=== PATIENT | female | born 1965 | race Caucasian/White ===

== ENCOUNTER 2017-12-12 16:54 | Emergency (ER) | payer MEDICARE, OTHER ==
[~2017-12-12 16:54] MED LIST: KETOROLAC 15 MG INJ IV
[2017-12-12 17:16] LABS: ADD MAN DIFF? NO
[2017-12-12 17:18] LABS: BASOPHILS % 0.4 % (0.0-2.0); EOSINOPHILS # 0.2 10^3/ul (0.0-0.5); EOSINOPHILS % 1.7 % (0.0-7.0); HEMATOCRIT 36.2 % (37.0-47.0); HEMOGLOBIN 11.6 g/dl (12.0-16.0); LYMPHOCYTES # 1.9 10^3/ul (0.8-2.9); LYMPHOCYTES % 21.5 % (15.0-51.0); MEAN CORPUSCULAR HEMOGLOBIN 28.2 pg (29.0-33.0); MEAN CORPUSCULAR VOLUME 87.9 fl (82.0-101.0); MEAN PLATELET VOLUME 9.2 fl (7.4-10.4); MONOCYTE # 0.9 10^3/ul (0.3-0.9); MONOCYTES % 10.3 % (0.0-11.0); NEUTROPHIL # 5.8 10^3/ul (1.6-7.5); NEUTROPHILS % 65.3 % (39.0-77.0); PLATELET COUNT 256 10^3/UL (140-415); RED BLOOD COUNT 4.12 10^6/ul (4.20-5.40); RED CELL DISTRIBUTION WIDTH 13.2 % (11.5-14.5)
[2017-12-12 17:18] LABS: WHITE BLOOD COUNT 8.9 10^3/ul (4.8-10.8)
[2017-12-12] MEDS: SOD CHLORIDE 0.9% 500 ML IV (17:19)
[2017-12-12] MEDS: ONDANSETRON 4 MG INJ IV (17:20)
[2017-12-12] MEDS: morphine 4 MG/ML VIAL IV (17:20)
[2017-12-12] MEDS: IODIXANOL LOCM 100 ML BTL (17:45)
[2017-12-12 17:52] LABS: INR 0.96; PARTIAL THROMBOPLASTIN TIME 28.6 Sec (25.0-35.0); PROTIME 12.9 Sec (11.9-14.9)
[2017-12-12 17:53] LABS: ANION GAP 17 (8-16); BLOOD UREA NITROGEN 20 mg/dl (7-20); CALCIUM 9.9 mg/dl (8.4-10.2); CARBON DIOXIDE 27 mmol/L (21-31); CHLORIDE 102 mmol/L (97-110); GLUCOSE 156 mg/dl (70-220); POTASSIUM 4.5 mmol/L (3.5-5.1); SODIUM 141 mmol/L (135-144)
[2017-12-12 18:14] LABS: TROPONIN-I < 0.012 ng/ml (0.000-0.120)
[2017-12-12] MEDS: SOD CHLORIDE 0.9% 100 ML (18:44)
[2017-12-12] MEDS: HYDROmorphONE 0.5 MG/0.5 ML SYG IV (18:54)
[2017-12-12 21:02] LABS: TROPONIN-I < 0.012 ng/ml (0.000-0.120)
[2017-12-13] MEDS: OXYCODONE/ACETAMINOPHEN (5/325) TAB PO (00:04)
[2017-12-13] MEDS: morphine 4 MG/ML VIAL IV (00:04)
== END 2017-12-13 00:17 | disposition home or self-care (01) ==
LOC: E/R 12-13 00:17
DX: J98.11 Atelectasis (principal); Z79.84 Long term (current) use of oral hypoglycemic drugs; Z96.652 Presence of left artificial knee joint
CPT/HCPCS: 36415; 71045; 71275; 80048; 84484; 85025; 85610; 85730; 93005; 96374; 96375; 96376; 99285-25

== ENCOUNTER 2017-12-18 15:05 | Inpatient (IN) | payer MEDICARE ==
[2017-12-18 16:14] LABS: ADD MAN DIFF? NO
[2017-12-18 16:16] LABS: BASOPHILS % 0.3 % (0.0-2.0); EOSINOPHILS # 0.2 10^3/ul (0.0-0.5); EOSINOPHILS % 1.3 % (0.0-7.0); HEMOGLOBIN 11.7 g/dl (12.0-16.0); LYMPHOCYTES # 1.9 10^3/ul (0.8-2.9); LYMPHOCYTES % 14.9 % (15.0-51.0); MEAN CORPUSCULAR HEMOGLOBIN 28.7 pg (29.0-33.0); MEAN CORPUSCULAR HGB CONC 32.5 g/dl (32.0-37.0); MEAN CORPUSCULAR VOLUME 88.2 fl (82.0-101.0); MONOCYTE # 0.9 10^3/ul (0.3-0.9); MONOCYTES % 7.4 % (0.0-11.0); NEUTROPHIL # 9.6 10^3/ul (1.6-7.5); NEUTROPHILS % 75.2 % (39.0-77.0); PLATELET COUNT 425 10^3/UL (140-415); RED BLOOD COUNT 4.08 10^6/ul (4.20-5.40); RED CELL DISTRIBUTION WIDTH 13.8 % (11.5-14.5)
[2017-12-18 16:16] LABS: WHITE BLOOD COUNT 12.8 10^3/ul (4.8-10.8)
[2017-12-18] MEDS: NITROGLYCERIN 2% 1 GM OINT PKT TD (16:25)
[2017-12-18] MEDS ORDERED: NITROGLYCERIN (SL) 0.4 MG TAB SL (16:30)
[2017-12-18 16:37] LABS: ANION GAP 15 (8-16); BLOOD UREA NITROGEN 17 mg/dl (7-20); CALCIUM 9.7 mg/dl (8.4-10.2); CARBON DIOXIDE 26 mmol/L (21-31); CHLORIDE 100 mmol/L (97-110); CREATININE 0.64 mg/dl (0.44-1.00); GLUCOSE 228 mg/dl (70-220); POTASSIUM 3.9 mmol/L (3.5-5.1); SODIUM 137 mmol/L (135-144)
[2017-12-18 16:47] LABS: TROPONIN-I < 0.010 ng/ml (0.000-0.120)
[2017-12-18] MEDS: morphine 4 MG/ML VIAL IV (17:35)
[2017-12-18] MEDS ORDERED: GLUCAGON 1 MG INJ IM (18:00)
[2017-12-18] MEDS ORDERED: ACETAMINOPHEN 325 MG TAB PO (18:00)
[2017-12-18] MEDS ORDERED: GLUCOSE GEL 15 GRAM TUBE BUCCAL (18:00)
[2017-12-18] MEDS ORDERED: GLUCOSE GEL 15 GRAM TUBE PO ×2 (18:00)
[2017-12-18] MEDS ORDERED: DEXTROSE 50% 50 ML SYRINGE IV ×2 (18:00)
[2017-12-18] MEDS ORDERED: ONDANSETRON 4 MG INJ IV (18:00)
[2017-12-18 18:49] LABS: HEMOGLOBIN A1C 8.6 % (0-5.9)
[2017-12-18] MEDS: INSULIN GLARGINE [LANtus] 3 ML PEN SC (20:36)
[2017-12-18] MEDS: INSULIN ASPART [NOVOLOG] 3 ML PEN SC ×3 (20:37→20:41)
[2017-12-18] MEDS: morphine 2 MG INJ IV (20:58)
[2017-12-18] MEDS: ONDANSETRON 4 MG INJ IV (20:58)
[2017-12-18 23:14] LABS: CREATINE KINASE 29 IU/L (23-200)
[2017-12-18 23:25] LABS: CK INDEX 0.8; CK-MB < 0.22 ng/ml (0.0-2.4); TROPONIN-I < 0.010 ng/ml (0.000-0.120)
[2017-12-19] MEDS: morphine 2 MG INJ IV ×5 (01:00→22:34)
[2017-12-19] MEDS: ACCU-CHEK XX (02:00)
[2017-12-19] MEDS: HYDROCODONE/APAP (5/325) TAB PO ×4 (03:53→21:42)
[2017-12-19 06:38] LABS: ADD MAN DIFF? NO
[2017-12-19 06:56] LABS: WHITE BLOOD COUNT 11.3 10^3/ul (4.8-10.8)
[2017-12-19 06:56] LABS: BASOPHIL # 0.1 10^3/ul (0.0-0.1); BASOPHILS % 0.4 % (0.0-2.0); EOSINOPHILS # 0.2 10^3/ul (0.0-0.5); EOSINOPHILS % 1.9 % (0.0-7.0); HEMATOCRIT 33.1 % (37.0-47.0); HEMOGLOBIN 10.7 g/dl (12.0-16.0); LYMPHOCYTES # 2.2 10^3/ul (0.8-2.9); LYMPHOCYTES % 19.1 % (15.0-51.0); MEAN CORPUSCULAR HEMOGLOBIN 28.6 pg (29.0-33.0); MEAN CORPUSCULAR HGB CONC 32.3 g/dl (32.0-37.0); MEAN CORPUSCULAR VOLUME 88.5 fl (82.0-101.0); MONOCYTE # 1.1 10^3/ul (0.3-0.9); MONOCYTES % 9.6 % (0.0-11.0); NEUTROPHIL # 7.7 10^3/ul (1.6-7.5); NEUTROPHILS % 67.8 % (39.0-77.0); PLATELET COUNT 387 10^3/UL (140-415); RED BLOOD COUNT 3.74 10^6/ul (4.20-5.40); RED CELL DISTRIBUTION WIDTH 13.9 % (11.5-14.5)
[2017-12-19] MEDS: SOD CHLORIDE 0.9% 1,000 ML IV ×3 (07:44→22:32)
[2017-12-19 07:56] LABS: ALANINE AMINOTRANSFERASE 34 IU/L (13-69); ALBUMIN 4.1 g/dl (3.3-4.9); ALKALINE PHOSPHATASE 126 IU/L (42-121); ANION GAP 16 (8-16); ASPARTATE AMINO TRANSFERASE 16 IU/L (15-46); BILIRUBIN,INDIRECT 0.8 mg/dl (0-1.1); BILIRUBIN,TOTAL 0.8 mg/dl (0.2-1.3); BLOOD UREA NITROGEN 18 mg/dl (7-20); CALCIUM 9.6 mg/dl (8.4-10.2); CARBON DIOXIDE 27 mmol/L (21-31); CHLORIDE 98 mmol/L (97-110); CHOL/HDL RATIO 3.1 RATIO; CHOLESTEROL 127 mg/dl (100-200); CREATININE 0.63 mg/dl (0.44-1.00); GLUCOSE 198 mg/dl (70-220); HDL CHOLESTEROL 40 mg/dl (37-92); LDL CHOLESTEROL,CALCULATED 64 mg/dl; POTASSIUM 4.1 mmol/L (3.5-5.1); SODIUM 137 mmol/L (135-144); TOTAL PROTEIN 7.5 g/dl (6.1-8.1); TRIGLYCERIDES 115 mg/dl (0-149)
[2017-12-19 07:58] LABS: CREATINE KINASE 23 IU/L (23-200)
[2017-12-19 08:08] LABS: CK-MB < 0.22 ng/ml (0.0-2.4); TROPONIN-I < 0.010 ng/ml (0.000-0.120)
[2017-12-19] MEDS: INSULIN ASPART [NOVOLOG] 3 ML PEN SC ×7 (08:13→21:08)
[2017-12-19 08:25] LABS: THYROID STIMULATING HORMONE 0.838 MIU/L (0.465-4.680)
[2017-12-19] MEDS: LISINOPRIL 20 MG TAB PO ×2 (08:38→21:09)
[2017-12-19] MEDS: METOPROLOL (XL) 25 MG TAB PO (08:39)
[2017-12-19] MEDS: LINAGLIPTIN 5 MG TABLET PO (08:39)
[2017-12-19 10:26] LABS: HEMOGLOBIN A1C 8.5 % (0-5.9)
[2017-12-19] MEDS: INSULIN GLARGINE [LANtus] 3 ML PEN SC (21:07)
[2017-12-19] MEDS: RIVAROXABAN 10 MG TABLET PO (22:33)
[2017-12-20] MEDS: HYDROCODONE/APAP (5/325) TAB PO ×4 (01:45→21:06)
[2017-12-20] MEDS: ACCU-CHEK XX (01:51)
[2017-12-20] MEDS: morphine 2 MG INJ IV ×3 (02:59→13:47)
[2017-12-20] MEDS: INSULIN ASPART [NOVOLOG] 3 ML PEN SC ×7 (08:17→21:10)
[2017-12-20] MEDS: LINAGLIPTIN 5 MG TABLET PO (08:33)
[2017-12-20] MEDS: METOPROLOL (XL) 25 MG TAB PO (08:35)
[2017-12-20] MEDS: LISINOPRIL 20 MG TAB PO (08:36)
[2017-12-20] MEDS: morphine LIQ (10 MG/5 ML) CUP PO ×2 (17:21→22:45)
[2017-12-20] MEDS: METOPROLOL 50 MG TAB PO (21:06)
[2017-12-20] MEDS: RIVAROXABAN 10 MG TABLET PO (21:06)
[2017-12-20] MEDS: INSULIN GLARGINE [LANtus] 3 ML PEN SC (21:10)
[2017-12-21] MEDS: HYDROCODONE/APAP (5/325) TAB PO ×3 (01:50→18:28)
[2017-12-21] MEDS: ACCU-CHEK XX (02:00)
[2017-12-21 07:49] LABS: ADD MAN DIFF? NO
[2017-12-21 08:01] LABS: WHITE BLOOD COUNT 10.7 10^3/ul (4.8-10.8)
[2017-12-21 08:01] LABS: BASOPHIL # 0.1 10^3/ul (0.0-0.1); BASOPHILS % 0.5 % (0.0-2.0); EOSINOPHILS # 0.2 10^3/ul (0.0-0.5); EOSINOPHILS % 1.7 % (0.0-7.0); HEMATOCRIT 36.2 % (37.0-47.0); HEMOGLOBIN 11.6 g/dl (12.0-16.0); LYMPHOCYTES # 1.9 10^3/ul (0.8-2.9); LYMPHOCYTES % 17.9 % (15.0-51.0); MEAN CORPUSCULAR VOLUME 87.4 fl (82.0-101.0); MONOCYTE # 0.9 10^3/ul (0.3-0.9); MONOCYTES % 8.2 % (0.0-11.0); NEUTROPHIL # 7.6 10^3/ul (1.6-7.5); NEUTROPHILS % 70.9 % (39.0-77.0); PLATELET COUNT 535 10^3/UL (140-415); RED BLOOD COUNT 4.14 10^6/ul (4.20-5.40); RED CELL DISTRIBUTION WIDTH 13.7 % (11.5-14.5)
[2017-12-21] MEDS: INSULIN ASPART [NOVOLOG] 3 ML PEN SC ×6 (08:28→17:39)
[2017-12-21 08:29] LABS: ANION GAP 15 (8-16); BLOOD UREA NITROGEN 20 mg/dl (7-20); CALCIUM 10.1 mg/dl (8.4-10.2); CARBON DIOXIDE 25 mmol/L (21-31); CHLORIDE 102 mmol/L (97-110); CREATININE 0.61 mg/dl (0.44-1.00); GLUCOSE 302 mg/dl (70-220); POTASSIUM 4.2 mmol/L (3.5-5.1); SODIUM 138 mmol/L (135-144)
[2017-12-21 08:31] LABS: MAGNESIUM 1.7 mg/dl (1.7-2.5)
[2017-12-21 08:31] LABS: PHOSPHORUS 4.7 mg/dl (2.5-4.9)
[2017-12-21] MEDS: LINAGLIPTIN 5 MG TABLET PO (08:42)
[2017-12-21] MEDS: LISINOPRIL 20 MG TAB PO (08:42)
[2017-12-21] MEDS: METOPROLOL 50 MG TAB PO (08:43)
[2017-12-21 11:00] LABS: ADD UMIC NO; UR ASCORBIC ACID NEGATIVE (NEGATIVE); UR BILIRUBIN (Dip) NEGATIVE (NEGATIVE); UR BLOOD (Dip) NEGATIVE (NEGATIVE); UR CLARITY CLEAR (CLEAR); UR COLOR STRAW (YELLOW); UR GLUCOSE (Dip) 3+ mg/dL (NEGATIVE); UR KETONES (Dip) NEGATIVE (NEGATIVE); UR LEUKOCYTE ESTERASE (Dip) NEGATIVE Leu/ul (NEGATIVE); UR NITRITE (Dip) NEGATIVE (NEGATIVE); UR TOTAL PROTEIN (Dip) NEGATIVE (NEGATIVE); UR UROBILINOGEN (Dip) NEGATIVE (NEGATIVE)
[2017-12-21] MEDS: morphine LIQ (10 MG/5 ML) CUP PO ×2 (11:48→16:09)
[2017-12-21] MEDS ORDERED: INSULIN ASPART [NOVOLOG] 3 ML PEN SC (17:30)
[2017-12-21] MEDS ORDERED: INSULIN GLARGINE [LANTus] (100 UNITS/ML) SYG SC (20:00)
== END 2017-12-21 18:48 | DRG 313 ==
LOC: E/R 15:05 → MS4 17:35
DX: R07.89 Other chest pain (principal); E11.9 Type 2 diabetes mellitus without complications; I10 Essential (primary) hypertension; E78.5 Hyperlipidemia, unspecified; Z96.652 Presence of left artificial knee joint; R00.2 Palpitations; D72.829 Elevated white blood cell count, unspecified; R00.0 Tachycardia, unspecified
CPT/HCPCS: 36415; 71045; 80048; 80053; 80061; 81003; 82550; 82553; 82607; 82962; 83036; 83735; 84100; 84443; 84484; 85025; 87086; 93005; 93306; 96374; 97116; 97161; 97530; 99285-25; G0378

== ENCOUNTER 2017-12-23 06:36 | Emergency (ER) | payer MEDICARE ==
[2017-12-23 07:57] LABS: ADD MAN DIFF? NO
[2017-12-23 08:00] LABS: WHITE BLOOD COUNT 10.9 10^3/ul (4.8-10.8)
[2017-12-23 08:00] LABS: BASOPHIL # 0.1 10^3/ul (0.0-0.1); BASOPHILS % 0.6 % (0.0-2.0); EOSINOPHILS # 0.2 10^3/ul (0.0-0.5); EOSINOPHILS % 1.4 % (0.0-7.0); HEMATOCRIT 36.9 % (37.0-47.0); HEMOGLOBIN 11.8 g/dl (12.0-16.0); LYMPHOCYTES % 18.6 % (15.0-51.0); MEAN CORPUSCULAR HEMOGLOBIN 27.9 pg (29.0-33.0); MEAN CORPUSCULAR VOLUME 87.2 fl (82.0-101.0); MEAN PLATELET VOLUME 8.9 fl (7.4-10.4); MONOCYTE # 1.2 10^3/ul (0.3-0.9); MONOCYTES % 10.7 % (0.0-11.0); NEUTROPHIL # 7.4 10^3/ul (1.6-7.5); NEUTROPHILS % 68.2 % (39.0-77.0); PLATELET COUNT 545 10^3/UL (140-415); RED BLOOD COUNT 4.23 10^6/ul (4.20-5.40); RED CELL DISTRIBUTION WIDTH 13.7 % (11.5-14.5)
[2017-12-23 08:01] LABS: ADD UMIC NO; UR ASCORBIC ACID NEGATIVE (NEGATIVE); UR BILIRUBIN (Dip) NEGATIVE (NEGATIVE); UR BLOOD (Dip) NEGATIVE (NEGATIVE); UR CLARITY CLEAR (CLEAR); UR COLOR STRAW (YELLOW); UR GLUCOSE (Dip) 3+ mg/dL (NEGATIVE); UR KETONES (Dip) NEGATIVE (NEGATIVE); UR LEUKOCYTE ESTERASE (Dip) NEGATIVE Leu/ul (NEGATIVE); UR NITRITE (Dip) NEGATIVE (NEGATIVE); UR SPECIFIC GRAVITY (Dip) 1.032 (1.003-1.030); UR TOTAL PROTEIN (Dip) NEGATIVE (NEGATIVE); UR UROBILINOGEN (Dip) NEGATIVE (NEGATIVE)
[2017-12-23] MEDS: SOD CHLORIDE 0.9% 1,000 ML IV (08:01)
[2017-12-23] MEDS: OXYCODONE/ACETAMINOPHEN (5/325) TAB PO (08:01)
[2017-12-23 08:17] LABS: ALANINE AMINOTRANSFERASE 20 IU/L (13-69); ALBUMIN 4.3 g/dl (3.3-4.9); ALBUMIN/GLOBULIN RATIO 1.22; ALKALINE PHOSPHATASE 98 IU/L (42-121); ANION GAP 14 (8-16); ASPARTATE AMINO TRANSFERASE 30 IU/L (15-46); BILIRUBIN,INDIRECT 0.4 mg/dl (0-1.1); BILIRUBIN,TOTAL 0.4 mg/dl (0.2-1.3); BLOOD UREA NITROGEN 26 mg/dl (7-20); CALCIUM 9.8 mg/dl (8.4-10.2); CARBON DIOXIDE 26 mmol/L (21-31); CHLORIDE 106 mmol/L (97-110); CREATININE 0.62 mg/dl (0.44-1.00); GLUCOSE 221 mg/dl (70-220); LIPASE 168 U/L (23-300); POTASSIUM 4.2 mmol/L (3.5-5.1); SODIUM 142 mmol/L (135-144); TOTAL PROTEIN 7.8 g/dl (6.1-8.1)
== END 2017-12-23 09:30 | disposition home or self-care (01) ==
LOC: E/R 06:36
DX: E11.65 Type 2 diabetes mellitus with hyperglycemia (principal); E86.0 Dehydration; R00.0 Tachycardia, unspecified; I10 Essential (primary) hypertension; Z79.4 Long term (current) use of insulin; Z96.652 Presence of left artificial knee joint
CPT/HCPCS: 36415; 80053; 81003; 82962; 83690; 85025; 93005; 93971; 99285-25

== ENCOUNTER 2018-03-11 14:39 | Emergency (ER) | payer MEDICARE | END 2018-03-11 15:20 | disposition home or self-care (01) | LOC: FTE 14:39 | DX: S40.862A Insect bite (nonvenomous) of left upper arm, initial encounter (principal); S00.86XA Insect bite (nonvenomous) of other part of head, initial encounter; I10 Essential (primary) hypertension; E11.9 Type 2 diabetes mellitus without complications; W57.XXXA Bitten or stung by nonvenomous insect and other nonvenomous arthropods, initial encounter; Y92.9 Unspecified place or not applicable; Z79.4 Long term (current) use of insulin | CPT/HCPCS: 99283 ==